=== PATIENT | male | born 1940 | race Caucasian/White ===

== ENCOUNTER → 2024-11-01 16:23 | Outpatient (REF) | payer MEDICARE, OTHER, SELFPAY | LOC: MRI 3T 16:23 | PROVIDERS: ATTENDING PHYSICIAN Urology; FAMILY PHYSICIAN Physician Assistant | DX: R97.20 Elevated prostate specific antigen [PSA] (principal) | CPT/HCPCS: 72197; A9575 ==

== ENCOUNTER → 2025-03-27 15:52 | Outpatient (REF) | payer MEDICARE, OTHER, SELFPAY | LOC: RCS 15:52 | PROVIDERS: ATTENDING PHYSICIAN Physician Assistant Medical | DX: Z01.818 Encounter for other preprocedural examination (principal); I45.10 Unspecified right bundle-branch block | CPT/HCPCS: 93306 ==

== ENCOUNTER → 2025-05-16 12:50 | Outpatient (REF) | payer MEDICARE, OTHER, SELFPAY ==
[2025-05-16 13:08] VITALS: BP 148/81; BP_SYST 63
== END ==
LOC: RADI 12:50
PROVIDERS: ATTENDING PHYSICIAN Surgery; FAMILY PHYSICIAN Physician Assistant
DX: R19.09 Other intra-abdominal and pelvic swelling, mass and lump (principal)
CPT/HCPCS: 20206; 76942; 88305; 88333; 88334